=== PATIENT | female | born 1960 | race African-American/Black ===

== ENCOUNTER 2021-05-01 17:22 | Emergency (ER) | payer MEDICAID ==
[~2021-05-01] VITALS: Ht 170.2 cm; Wt 49.2 kg
[2021-05-01] MEDS ORDERED: KETOROLAC 30MG/ML VIAL IV STA (17:35)
[2021-05-01] MEDS ORDERED: CYCLOBENZAPRINE 10MG TABLET PO ONE (17:45)
[2021-05-01 18:24] LABS: BASOPHILS % 0.8 % (0.0-2.0); EOSINOPHILS % 1.2 % (0.0-5.0); HEMATOCRIT. 41.2 % (36.0-48.0); HEMOGLOBIN. 14.3 g/dL (12.0-16.0); LYMPHOCYTES % 24.1 % (20.0-50.0); MEAN CORPUSCULAR HEMOGLOBIN 30.5 pg (28.0-32.0); MEAN CORPUSCULAR VOLUME 87.8 fL (81.0-99.0); MEAN PLATELET VOLUME 7.1 fl (7.4-10.4); MONOCYTES % 5.7 % (2.0-8.0); NEUTROPHILS % 68.2 % (40.0-76.0); PLATELET 295 x1000/uL (130-400); RED BLOOD CELL COUNT 4.69 mill/uL (4.2-5.4); RED CELL DISTRIBUTION WIDTH 13.1 % (11.6-14.6)
[2021-05-01 18:34] LABS: CHLORIDE 109 mEq/L (98-107)
[2021-05-01] MEDS ORDERED: IBUP-2029 MT (19:05)
[2021-05-01] MEDS ORDERED: CYCL10TA7 MT (19:06)
[2021-05-01 19:25] VITALS: BP 125/86
== END 2021-05-01 19:29 | disposition home or self-care (01) ==
LOC: ER 17:22
DX: R07.89 Other chest pain (principal); M54.12 Radiculopathy, cervical region; M79.622 Pain in left upper arm; M47.892 Other spondylosis, cervical region
CPT/HCPCS: 36415; 71045; 72040; 80053; 82962; 84484; 85025; 93005; 96360; 99285; J1885; Z7610; 96361

== ENCOUNTER 2022-01-01 19:56 | Emergency (ER) | payer MEDICAID, OTHER ==
[~2022-01-01] VITALS: Ht 170.2 cm; Wt 50.0 kg
[~2022-01-01 19:56] MED LIST: CYCL10TA7 MT; IBUP-2029 MT
[2022-01-01 20:02] VITALS: BP 113/86
[2022-01-01] MEDS ORDERED: PREDNISONE 20MG TABLET PO ONE (23:30)
[2022-01-01] MEDS ORDERED: DIPHENHYDRAMINE 50MG CAPSULE PO ONE (23:30)
[2022-01-01] MEDS ORDERED: FAMOTIDINE 20MG TABLET PO ONE (23:45)
[2022-01-01] MEDS ORDERED: DIPH25CA83 PO ×2 (23:47)
[2022-01-01] MEDS ORDERED: FAMO20TA8 PO ×2 (23:47)
[2022-01-01] MEDS ORDERED: P20 MT ×2 (23:47)
[2022-01-02] MEDS ORDERED: DIPH25CA83 PO (08:29)
[2022-01-02] MEDS ORDERED: CYCL10TA7 MT (08:29)
[2022-01-02] MEDS ORDERED: FAMO20TA8 PO (08:29)
[2022-01-02] MEDS ORDERED: P20 MT (08:29)
== END 2022-01-02 00:23 | disposition home or self-care (01) ==
LOC: ER 19:56
DX: R51.9 Headache, unspecified (principal)
CPT/HCPCS: 99283